=== PATIENT | male | born 2000 | race African-American/Black ===

== ENCOUNTER 2024-03-20 21:20 | Emergency (ER) | payer OTHER ==
[~2024-03-20] VITALS: Ht 180.3 cm; Wt 84.0 kg
[2024-03-20 21:25] VITALS: BP 181/79; TEMP 97.9; O2SAT 99
[2024-03-21] MEDS: KETOROLAC 60MG 2ML VIAL IM ONE (00:03)
== END 2024-03-21 00:25 | disposition home or self-care (01) ==
LOC: M ED 21:20
DX: S96.811A Strain of other specified muscles and tendons at ankle and foot level, right foot, initial encounter (principal); S93.401A Sprain of unspecified ligament of right ankle, initial encounter; S93.601A Unspecified sprain of right foot, initial encounter; S90.31XA Contusion of right foot, initial encounter; S90.01XA Contusion of right ankle, initial encounter; W19.XXXA Unspecified fall, initial encounter; Y92.89 Other specified places as the place of occurrence of the external cause; Y93.01 Activity, walking, marching and hiking; Y99.9 Unspecified external cause status
CPT/HCPCS: 73610; 73630; 96372; 99284; J1885